=== PATIENT | female | born 1980 | race Caucasian/White ===

== ENCOUNTER 2016-12-17 09:47 | Observation (INO) | payer OTHER ==
[2016-12-17 11:35] LABS: HEMOGLOBIN 14.7 gm/dl (12.3-15.3); RED BLOOD COUNT 4.81 M/UL (4.00-5.10); WHITE BLOOD COUNT 13.6 K/UL (4.5-11.0)
[2016-12-17 11:47] LABS: BUN/CREATININE RATIO 13 (0-10)
[2016-12-17] MEDS ORDERED: MULTIVITAMINS1 EAC1 PO (16:55)
[2016-12-18 05:51] LABS: RED BLOOD COUNT 4.26 M/UL (4.00-5.10)
[2016-12-18 06:10] LABS: BUN/CREATININE RATIO 9 (0-10)
[2016-12-19 06:48] LABS: BUN/CREATININE RATIO 8 (0-10)
== END 2016-12-19 10:50 | disposition home or self-care (01) ==
LOC: ER1 09:47 → ZEROF 14:28 → M/S 17:27
PROVIDERS: Emergency Medicine; ADMIT Surgery
PROC: BF14YZZ Fluoroscopy of Gallbladder, Bile Ducts and Pancreatic Ducts using Other Contrast (ICD-10-PCS; 2016-12-18)
PROC: 0FT44ZZ Resection of Gallbladder, Percutaneous Endoscopic Approach (ICD-10-PCS; principal; 2016-12-18 09:00)
DX: K80.10 Calculus of gallbladder with chronic cholecystitis without obstruction (principal); E66.9 Obesity, unspecified; Z98.51 Tubal ligation status; Z82.49 Family history of ischemic heart disease and other diseases of the circulatory system; Z83.3 Family history of diabetes mellitus
CPT/HCPCS: 36415; 47531; 80053; 81001; 83690; 84484; 84703; 85025; 85379; 93005; 96365; 96366; 96367; 96368; 96374; 96375; 99285; G0378; J0690; J1100; J1335; J2270; J2405; J2710; J3010; J7030; J7050; J7120; Q9962; Q9963